=== PATIENT | female | born 1950 | race Two or more races ===

== ENCOUNTER 2017-07-03 08:30 | Outpatient (CLI) | payer OTHER ==
[~2017-07-03 08:30] MED LIST: CALTRATE 600600 MG; LIPITOR40 MG PO; PLAVIX75 MG PO
== END 2017-07-03 08:37 | disposition home or self-care (01) ==
LOC: NUCLEAR 08:30
DX: I10 Essential (primary) hypertension (principal); G45.9 Transient cerebral ischemic attack, unspecified

== ENCOUNTER 2017-09-16 12:03 | Emergency (ER) | payer OTHER ==
[~2017-09-16] VITALS: Ht 162.6 cm; Wt 56.7 kg
[2017-09-16] MEDS ORDERED: LOSARTAN POTASS50 MG (12:38)
== END 2017-09-16 14:53 | disposition home or self-care (01) ==
LOC: ER 12:03
DX: I10 Essential (primary) hypertension (principal)

== ENCOUNTER → 2017-09-30 | Outpatient (CLI) | payer OTHER ==
[~2017-09-30] MED LIST changes: +LOSARTAN POTASS50 MG
== END | disposition home or self-care (01) ==
LOC: NUCLEAR 07:13
DX: I20.0 Unstable angina (principal); E78.2 Mixed hyperlipidemia; I11.9 Hypertensive heart disease without heart failure
CPT/HCPCS: 78452; 93017; A9500